=== PATIENT | male | born 1965 | race Caucasian/White ===

== ENCOUNTER 2018-05-17 13:31 | Emergency (ER) | payer MEDICAID ==
[~2018-05-17] VITALS: Ht 165.1 cm; Wt 99.8 kg
--- NOTE | 2018-05-17 13:31 | NUR ---
Pt placed in h1, ekg done at bedside Addendum: 05/17/18 at 1407 by [email or web address] PATIENT LAYING IN ER BED 2. PATIENT IS AWAKE, ALERT, AND ORIENTED. PATIENT IS VERBALLY RESPONSIVE. PATIENT ABLE TO TAKE PO MEDICATION PER MD ORDERS. NO ACUTE SIGNS OF RESP DISTRESS, NO SOB. BREATHING EVEN AND UNALBORED. PATIENT COMPLAINING OF CHEST PAIN, 7/10 PAIN. URINAL AT BEDSIDE. BED AT LOWEST POSITION, SIDE RAILS UP. WILL CONTINUE TO MONITOR.
[2018-05-17 13:45] VITALS: BP_SYST 153
--- NOTE | 2018-05-17 13:52 | NUR ---
Pt moved to bed 02
[2018-05-17] MEDS: ASPIRIN 81 MG TAB.CHEW PO ONE (13:59)
[2018-05-17 14:04] LABS: EOSINOPHILS # (AUTO) 0.2 K/uL (0.0-0.4); RED CELL DISTRIBUTION WIDTH 12.8 % (9.0-15.0)
--- NOTE | 2018-05-17 14:05 | NUR ---
Patient AOx4 and obeys commands. Patent placed on monitor. VSS. Patient stated he has pain of 08/14. No signs of acute distress.
[2018-05-17 14:17] LABS: EOSINOPHILS % (AUTO) 2.4 % (0.0-4.0); HEMATOCRIT 51.9 % (36-54); HEMOGLOBIN 17.9 g/dL (14.0-18.0); LYMPHOCYTES # (AUTO) 3.2 K/uL (1.0-5.5); MEAN CORPUSCULAR HEMOGLOBIN 34 pg (27-31); MEAN CORPUSCULAR HGB CONC 35 % (32-36); MEAN CORPUSCULAR VOLUME 97 fL (79.0-98.0); MONOCYTES # (AUTO) 1.1 K/uL (0.0-1.0); MONOCYTES % (AUTO) 16.1 % (1.7-9.3); PLATELET COUNT (AUTO) 198 K/uL (130-430); RED BLOOD CELL COUNT(AUTO) 5.33 MIL/uL (4.2-6.2); WHITE BLOOD COUNT (AUTO) 7.1 K/uL (4.8-10.8)
[2018-05-17 14:21] LABS: CALCIUM 8.6 mg/dL (8.4-11.0); CREATININE 0.67 mg/dL (0.55-1.30); POTASSIUM 3.9 mmol/L (3.5-5.1)
[2018-05-17 14:26] LABS: BASOPHILS % (AUTO) 0.3 % (0.0-2.0); NEUTROPHILS % (AUTO) 36.2 % (40.0-70.0)
[2018-05-17 14:27] LABS: NEUTROPHILS # (AUTO) 2.6 K/uL (1.8-7.7)
--- NOTE | 2018-05-17 14:27 | NUR ---
FLYNN Galeana at bedside examining patient.
[2018-05-17 14:28] LABS: ALBUMIN 3.8 g/dL (3.4-4.8); TOTAL BILIRUBIN 0.4 mg/dL (0.0-1.0)
[2018-05-17 14:30] LABS: PROTHROMBIN TIME 9.8 SECS (9.5-12.5)
[2018-05-17] MEDS: KETOROLAC TROMETHAMINE 30 MG VIAL IVP ONE (14:51)
[2018-05-17 14:52] LABS: CKMB RELATIVE INDEX 0.8 (0.0-2.9); CREATINE KINASE MB 3.6 ng/mL (0-3.6)
[2018-05-17 14:53] LABS: BILIRUBIN,URINE NEGATIVE (NEGATIVE); CLARITY/URINE CLEAR (CLEAR); COLOR,URINE YELLOW (YELLOW); GLUCOSE,URINE NEGATIVE (NEGATIVE); KETONES,URINE NEGATIVE (NEGATIVE); LEUKOCYTE ESTERASE ,URINE NEGATIVE (NEGATIVE); NITRITE, URINE NEGATIVE (NEGATIVE); PROTEIN URINE NEGATIVE (NEGATIVE); UROBILINOGEN,URINE 0.2 (0.2-1.0)
[2018-05-17 15:11] LABS: BLOOD, URINE TRACE (NEGATIVE)
[2018-05-17 15:13] LABS: BACTERIA,URINE RARE /HPF (None Seen); MUCUS,URINE None Seen /LPF (None Seen); RBC,URINE 0-3 /HPF (0-3); WBC,URINE 0-3 /HPF (0-3)
--- NOTE | 2018-05-17 16:05 | NUR ---
Patient asleep at this time. Patient in no signs of acute distress. Side rails up.
[2018-05-17 16:11] VITALS: BP_SYST 153
[2018-05-17] MEDS ORDERED: HYDROcodone/ACETAMIN 5-325 MG TAB (NORCO/ VICODIN) PO ONE (17:15)
--- NOTE | 2018-05-17 17:42 | NUR ---
Patient given written and verbal discharge instructions and verbalizes understanding. ER MD discussed with patient the results and treatment provided. Patient in stable condition. ID arm band removed. IV catheter removed intact and dressing applied, no active bleeding. Rx of naprosyn given. Patient educated on pain management and to follow up with PMD. Pain Scale 0/10. Opportunity for questions provided and answered. Medication side effect fact sheet provided.
== END 2018-05-17 17:42 | disposition home or self-care (01) ==
LOC: SED 13:31
DX: R07.89 Other chest pain (principal); B34.9 Viral infection, unspecified; F41.9 Anxiety disorder, unspecified; R05 Cough; R03.0 Elevated blood-pressure reading, without diagnosis of hypertension; Z88.6 Allergy status to analgesic agent; Z86.19 Personal history of other infectious and parasitic diseases
CPT/HCPCS: 36415; 71045; 80053; 81000; 82140; 82550; 82553; 82962; 83880; 84484; 85025; 85610; 85651; 85730; 93005; 96374; 99284; J1885

== ENCOUNTER 2018-10-14 20:44 | Emergency (ER) | payer MEDICAID ==
[~2018-10-14] VITALS: Ht 167.6 cm; Wt 104.3 kg
[2018-10-14 20:47] VITALS: BP_SYST 149
--- NOTE | 2018-10-14 20:47 | NUR ---
Patient to ER bed 03 to gown for evaluation. Side rails up. Report given to CAMPBELL Thomas.
[2018-10-14] MEDS ORDERED: ASPIRIN 325 MG TABLET PO ONE (21:00)
[2018-10-14] MEDS ORDERED: PREDNISONE 20 MG TABLET PO ONE (21:15)
--- NOTE | 2018-10-14 21:15 | NUR ---
patient arrived AOx4 with c/o chest pain since 8 pm today. patient states pain feels like his chest is heavy with left arm weakness. patient denies n/v at this time. patient is talking in full sentences without sob. no other complaint or injury at this time.
[2018-10-14 21:22] LABS: BASOPHILS % (AUTO) 0.3 % (0.0-2.0); EOSINOPHILS # (AUTO) 0.2 K/uL (0.0-0.4); EOSINOPHILS % (AUTO) 3.1 % (0.0-4.0); LYMPHOCYTES % (AUTO) 31.8 % (20.5-51.5); MEAN CORPUSCULAR HEMOGLOBIN 35 pg (27-31); MEAN CORPUSCULAR HGB CONC 35 % (32-36); MEAN CORPUSCULAR VOLUME 100 fL (79.0-98.0); MONOCYTES # (AUTO) 1.6 K/uL (0.0-1.0); MONOCYTES % (AUTO) 26.1 % (1.7-9.3); NEUTROPHILS # (AUTO) 2.4 K/uL (1.8-7.7); NEUTROPHILS % (AUTO) 38.7 % (40.0-70.0); RED BLOOD CELL COUNT(AUTO) 4.61 MIL/uL (4.2-6.2); RED CELL DISTRIBUTION WIDTH 13.1 % (9.0-15.0); WHITE BLOOD COUNT (AUTO) 6.3 K/uL (4.8-10.8)
[2018-10-14 21:37] LABS: PLATELET COUNT (AUTO) 182 K/uL (130-430)
[2018-10-14 21:39] LABS: ALBUMIN 3.6 g/dL (3.4-4.8); CALCIUM 8.7 mg/dL (8.4-11.0); CREATININE 0.86 mg/dL (0.55-1.30); POTASSIUM 3.8 mmol/L (3.5-5.1); TOTAL BILIRUBIN 0.3 mg/dL (0.0-1.0)
--- NOTE | 2018-10-14 22:00 | NUR ---
ER at bedside examining patient.
[2018-10-14 22:38] VITALS: BP_SYST 117
--- NOTE | 2018-10-14 22:38 | NUR ---
Patient given written and verbal discharge instructions and verbalizes understanding. ER MD discussed with patient the results and treatment provided. Patient in stable condition. ID arm band removed. IV catheter removed intact and dressing applied, no active bleeding. Rx of zero given. Patient educated on pain management and to follow up with PMD. Pain Scale 0/10. Opportunity for questions provided and answered. Medication side effect fact sheet provided.
== END 2018-10-14 22:38 | disposition home or self-care (01) ==
LOC: SED 20:44
DX: R07.89 Other chest pain (principal); F10.129 Alcohol abuse with intoxication, unspecified; R03.0 Elevated blood-pressure reading, without diagnosis of hypertension; Z88.6 Allergy status to analgesic agent; Z86.19 Personal history of other infectious and parasitic diseases; F17.210 Nicotine dependence, cigarettes, uncomplicated
CPT/HCPCS: 36415; 71045; 80053; 82550; 84484; 85025; 85379; 93005; 99284; G0482; J7512

== ENCOUNTER 2019-03-18 21:05 | Emergency (ER) | payer MEDICAID ==
[~2019-03-18] VITALS: Ht 165.1 cm; Wt 86.2 kg
[2019-03-18 21:07] VITALS: BP_SYST 170
[2019-03-18 21:32] LABS: BASOPHILS # (AUTO) 0.1 K/uL (0.0-0.2); EOSINOPHILS # (AUTO) 0.1 K/uL (0.0-0.4); EOSINOPHILS % (AUTO) 1.8 % (0.0-4.0); HEMOGLOBIN 16.2 g/dL (14.0-18.0); LYMPHOCYTES # (AUTO) 2.3 K/uL (1.0-5.5); LYMPHOCYTES % (AUTO) 34.3 % (20.5-51.5); MEAN CORPUSCULAR HEMOGLOBIN 34 pg (27-31); MEAN CORPUSCULAR HGB CONC 34 % (32-36); MEAN CORPUSCULAR VOLUME 100 fL (79.0-98.0); MONOCYTES # (AUTO) 1.5 K/uL (0.0-1.0); MONOCYTES % (AUTO) 23.2 % (1.7-9.3); NEUTROPHILS # (AUTO) 2.6 K/uL (1.8-7.7); NEUTROPHILS % (AUTO) 39.7 % (40.0-70.0); PLATELET COUNT (AUTO) 172 K/uL (130-430); RED BLOOD CELL COUNT(AUTO) 4.72 MIL/uL (4.2-6.2); RED CELL DISTRIBUTION WIDTH 13.5 % (9.0-15.0); WHITE BLOOD COUNT (AUTO) 6.6 K/uL (4.8-10.8)
[2019-03-18 21:55] LABS: CALCIUM 8.1 mg/dL (8.4-11.0); CREATININE 0.78 mg/dL (0.55-1.30); POTASSIUM 3.4 mmol/L (3.5-5.1)
[2019-03-18 22:00] LABS: ALBUMIN 3.7 g/dL (3.4-4.8); TOTAL BILIRUBIN 0.5 mg/dL (0.0-1.0)
[2019-03-18] MEDS ORDERED: NACL 0.9% 1,000 ML IV ONE (22:15)
[2019-03-18] MEDS ORDERED: KETOROLAC TROMETHAMINE 30 MG VIAL IVP ONE (22:15)
[2019-03-18] MEDS ORDERED: LORazepam 2 MG/ML VIAL IVP ONE (22:15)
[2019-03-18 23:30] VITALS: BP_SYST 144
== END 2019-03-18 23:30 | disposition home or self-care (01) ==
LOC: SED 21:05
DX: J11.1 Influenza due to unidentified influenza virus with other respiratory manifestations (principal); F17.290 Nicotine dependence, other tobacco product, uncomplicated; Z88.5 Allergy status to narcotic agent
CPT/HCPCS: 36415; 71045; 80053; 83880; 84484; 85025; 93005; 96374; 96375; 99285; J1885; J2060; J7030